=== PATIENT | male | born 1985 | race Two or more races ===

== ENCOUNTER 2018-01-20 15:06 | Emergency (ER) | payer MEDICAID ==
--- NOTE | 2018-01-20 16:17 | RAD ---
HISTORY: Headache COMPARISONS: None TECHNIQUE: Multiple contiguous axial CT scans were obtained of the head without intravenous contrast. FINDINGS: HEMORRHAGE/INFARCT: There is no hemorrhage or acute infarct. MASSES/SHIFT: There is no mass or shift. EXTRA-AXIAL SPACES: There are no extra-axial fluid collections. SULCI AND VENTRICLES: The sulci and ventricles are normal in size and position for the patient's stated age. CEREBRUM: There are no focal parenchymal abnormalities. BRAINSTEM: There are no focal parenchymal abnormalities. CEREBELLUM: There are no focal parenchymal abnormalities. VESSELS: The vessels are grossly normal. PARANASAL SINUSES: The paranasal sinuses are clear. ORBITS: The orbits are unremarkable. BONES AND SOFT TISSUE: No bone or soft tissue abnormalities are noted. OTHER: None IMPRESSION: NO ACUTE INTRACRANIAL PATHOLOGY.
[2018-01-20] MEDS ORDERED: Ketorolac INJ* 30 MG/ML 1 ML VIAL IV PUSH ONE (16:25)
[2018-01-20] MEDS ORDERED: NS 0.9% 1000 ML* 1,000 ML IV ONE (16:25)
[2018-01-20] MEDS ORDERED: Ondansetron INJ* 2 MG/ML VIAL IV ONE (16:25)
[2018-01-20] MEDS ORDERED: Acetaminophen TAB* 325 MG PO ONE (16:26)
[2018-01-20] MEDS ORDERED: Meclizine TAB* 12.5 MG PO ONE (16:42)
[2018-01-20 18:00] VITALS: BP 135/73
--- NOTE | 2018-01-20 18:15 | UC ---
Yamile Betancourt Emily, scribed for Tanner Rosario MD on 01/20/18 at 1618 . Headache HPI - HPI Summary HPI Summary: This patient is a 32 year old M presenting to urgent care with a chief complaint of frontal headache that began yesterday at 1400 and worsened today COUPLER. The patient reports the pain 2/10 upon waking and worsening to 10/10 in severity. Symptoms aggravated by nothing. Symptoms alleviated by nothing. Patient reports dizziness, blurred vision, vomiting, nausea (resolved), and chills. Patient denies SOB, fever, neck pain, back pain, numbness, nasal discharge, and sore throat. Pt reports current headache in the same location but with different pain intensity as his previous migraines. Medications reviewed. Allergies reviewed. - History Of Current Complaint Chief Complaint: UCHeadache Stated Complaint: HEADACHE,DIZZY Time Seen by Provider: 01/20/18 15:44 Hx Obtained From: Patient Onset/Duration: Sudden Onset, Lasting Days, Still Present Onset Of Symptoms: Gradual Initially Headache Was: Mild Currently Pain Is: Severe Pain Intensity: 10 Pain Scale Used: 0-10 Numeric Timing: Constant Location of Headache: Frontal Aggravating Factor(s): Nothing Allevating Factor(s): Nothing Associated Signs And Symptoms: Positive: Other (Noted In Comments) - Positive dizziness, blurred vision, vomiting, nausea (resolved), and chills. Negative SOB , fever, neck pain, back pain, numbness, nasal discharge, and sore throat. - Allergies/Home Medications Allergies/Adverse Reactions: Allergies Allergy/AdvReac Type Severity Reaction Status Date / Time No Known Allergies Allergy Verified 02/13/14 15:35 PMH/Surg Hx/FS Hx/Imm Hx Previously Healthy: No Endocrine History: Other Other Endocrine History: Negative diabetes Neurological History: Migraine - Surgical History Surgical History: Yes Surgery Procedure, Year, and Place: CHEST TUBE AN - Family History Known Family History: Positive: Diabetes - Social History Occupation: Employed Full-time Lives: With Family Alcohol Use: Rare Substance Use Type: None Smoking Status (MU): Never Smoked Tobacco Review of Systems Constitutional: Chills, Other - Negative fever Eyes: Blurred Vision ENT: Other - Negative nasal discharge and sore throat Gastrointestinal: Vomiting, Nausea Musculoskeletal: Other: - Negative neck pain and back pain Neurological: Headache, Other - Positive dizziness. Negative numbness All Other Systems Reviewed And Are Negative: Yes Physical Exam - Summary Physical Exam Summary: General: well-appearing, mild pain distress Skin: warm, color reflects adequate perfusion, dry Head: normal Eyes: EOMI, ZEYNEP ENT: normal Neck: supple, nontender Respiratory: CTA, breath sounds present Cardiovascular: RRR Abdomen: soft, nontender Bowel: present Musculoskeletal: normal, strength/ROM intact Neurological: sensory/motor intact, A&O x3 Psychological: affect/mood appropriate Triage Information Reviewed: Yes Vital Signs: Initial Vital Signs Temp 98.9 F 01/20/18 15:27 Pulse 112 01/20/18 15:27 Resp 18 01/20/18 15:27 BP 184/70 01/20/18 15:27 Pulse Ox 100 01/20/18 15:27 Vital Signs Reviewed: Yes Diagnostics - Radiology Brain CT Radiology Interpretation Completed By: Radiologist - Brain CT reveals, per radiologist, no acute intracranial pathology. Physician has reviewed this radiology report. Re-Evaluation - Re-Evaluation First Eval Re-Evaluation Time: 17:51 Change: Improved Comment: The pt reports the headache being 3/10 in severity Headache Course/Dx - Course Course Of Treatment: IMPROVED IN CLINIC AFTER 1L NS IVF, ZOFRAN, TORADOL AND ACETAMINOPHEN. PATIENT FEELS COMFORTABLE GOING HOME. F/U PMD; RECHECKED SOONER IF WORSE. - Differential Dx/Diagnosis Provider Diagnoses: HEADACHE. DIZZINESS Discharge - Sign-Out/Discharge Documenting (check all that apply): Discharge/Admit/Transfer - Discharge Plan Condition: Stable Disposition: HOME Patient Education Materials: Acute Headache (ED), Dizziness (ED) Referrals: Andrew Lopez MD [Primary Care Provider] - Additional Instructions: FOLLOW UP WITH YOUR DOCTOR IF NOT COMPLETELY IMPROVED. TAKE IBUPROFEN 600MG OR ACETAMINOPHEN 1000MG EVERY 6 HOURS NEEDED FOR PAIN. GET RECHECKED FOR ANY WORSENING OF YOUR CONDITION OR QUESTIONS OR CONCERNS. - Billing Disposition and Condition Condition: STABLE Disposition: HOME The documentation as recorded by the Yamile grimes Emily accurately reflects the service I personally performed and the decisions made by me, Tanner Rosario MD.
== END 2018-01-20 18:35 | disposition home or self-care (01) ==
LOC: UCEAST 15:06
DX: G43.909 Migraine, unspecified, not intractable, without status migrainosus (principal); R42 Dizziness and giddiness; Z83.3 Family history of diabetes mellitus
CPT/HCPCS: 70450; 96360; 96374; 99212; A9270-GY; G0463; J1885; J2405

== ENCOUNTER 2018-01-29 18:22 | Emergency (ER) | payer MEDICAID, OTHER ==
--- NOTE | 2018-01-29 19:16 | RAD ---
Indication: Chest pain. Single frontal view of the chest performed at 1900 hours was reviewed. Comparison is made with previous exam dated June 04, 2015. No mediastinal shift is noted. Heart is of normal size and configuration. Lung gomez appear clear. IMPRESSION: NO ACTIVE CARDIOPULMONARY DISEASE IS NOTED.
[2018-01-29 19:24] LABS: ABS Basophils 0 10^3/ul (0-0.2); ABS Eosinophils 0.1 10^3/ul (0-0.6); ABS Lymphocytes 3.2 10^3/ul (1.0-4.8); ABS Monocytes 0.9 10^3/ul (0-0.8); ABS Nucleated RBC 0 10^3/ul; Eosinophil % 1.6 % (0-6); Hematocrit 44 % (42-52); Hemoglobin 15.2 g/dl (14.0-18.0); Lymphocyte % 34.4 % (25-47); Mean Corpuscular HGB Conc 34 g/dl (31-36); Mean Corpuscular Hemoglobin 28 pg (27-31); Mean Corpuscular Volume 83 fL (80-94); Mean Platelet Volume 8.2 um3 (7.4-10.4); Nucleated Red Blood Cells % 0.1; Platelet Count 396 10^3/ul (150-450); Red Blood Count 5.34 10^6/ul (4.0-5.4); Red Cell Distribution Width 13 % (10.5-15); White Blood Count 9.3 10^3/ul (3.5-10.8)
[2018-01-29 19:57] LABS: EGFR Non-African American 110.3 (>60)
--- NOTE | 2018-01-29 21:32 | ED ---
Augustin Betancourt Tiffany, scribed for Matt Corbett MD on 01/29/18 at 1936 . HPI Chest Pain - HPI Summary HPI Summary: 32 year old M [facility] to [facility] complains of chest pain that began at 17:20 while patient was sitting down. Describes pain as sharp. Symptoms aggravated by nothing. Symptoms alleviated by nothing. Patient denies nausea, vomiting, SOB, dizziness. Pain lasted for 1 hour. Patient was given Aspirin en route with relief, chest pain is resolved upon evaluation. - History of Current Complaint Time Seen by Provider: 01/29/18 18:53 Hx Obtained From: Patient Onset/Duration: Started Hours Ago - 17:20 today, Resolved Character: Other: - sharp Aggravating Factor(s): Nothing Alleviating Factor(s): Rest Associated Signs and Symptoms: Positive: Negative - nausea. Negative: Dizziness , Shortness of Breath, Vomiting - Allergy/Home Medications Allergies/Adverse Reactions: Allergies Allergy/AdvReac Type Severity Reaction Status Date / Time No Known Allergies Allergy Verified 02/13/14 15:35 Home Medications: Home Medications Albuterol HFA INHALER* [Ventolin HFA Inhaler*] 2 puff INH QID 01/29/18 [History Confirmed 01/29/18] Budesonide/Formote 160/4.5(NF) [Symbicort 160/4.5 (NF)] 2 puff INH BID 01/29/18 [History Confirmed 01/29/18] PMH/Surg Hx/FS Hx/Imm Hx Previously Healthy: No Cardiovascular History: Denies: Hx Pacemaker/ICD Respiratory History: Reports: Hx Asthma Sensory History: Reports: Hx Contacts or Glasses Denies: Hx Hearing Aid Opthamlomology History: Reports: Hx Contacts or Glasses Psychiatric History: Denies: Hx Panic Disorder - Surgical History Surgery Procedure, Year, and Place: CHEST TUBE AN . VASECTOMY - Immunization History Date of Tetanus Vaccine: within 10 years Date of Influenza Vaccine: 2010 Infectious Disease History: Denies: Traveled Outside the [place] in Last 30 Days - Family History Known Family History: Positive: Diabetes, Other - ASTHMA - Social History Alcohol Use: Rare Hx Substance Use: No Substance Use Type: Reports: None Hx Tobacco Use: No Smoking Status (MU): Never Smoked Tobacco Review of Systems Positive: Chest Pain - SINCE RESOLVED Negative: Shortness Of Breath Negative: Vomiting, Nausea Neurological: Negative - Dizziness All Other Systems Reviewed And Are Negative: Yes Physical Exam - Summary Physical Exam Summary: VITAL SIGNS: Reviewed. GENERAL: Patient is a well-developed and nourished male who is lying comfortable in the stretcher. Patient is not in any acute respiratory distress. HEAD AND FACE: No signs of trauma. No ecchymosis, hematomas or skull depressions. No sinus tenderness. EYES: PERRLA, EOMI x 2, No injected conjunctiva, no nystagmus. EARS: Hearing grossly intact. Ear canals and tympanic membranes are within normal limits. MOUTH: Oropharynx within normal limits. NECK: Supple, trachea is midline, no adenopathy, no JVD, no carotid bruit, no c- spine tenderness, neck with full ROM. CHEST: Symmetric, no tenderness at palpation LUNGS: Clear to auscultation bilaterally. No wheezing or crackles. CVS: Regular rate and rhythm, S1 and S2 present, no murmurs or gallops appreciated. ABDOMEN: Soft, non-tender. No signs of distention. No rebound no guarding, and no masses palpated. Bowel sounds are normal. EXTREMITIES: FROM in all major joints, no edema, no cyanosis or clubbing. NEURO: Alert and oriented x 3. No acute neurological deficits. Speech is normal and follows commands. SKIN: Dry and warm Triage Information Reviewed: Yes Vital Signs On Initial Exam: Initial Vitals Pulse Resp Pulse Ox 108 22 99 01/29/18 18:33 06 18:33 01/29/18 18:33 Vital Signs Reviewed: Yes Diagnostics - Vital Signs Vital Signs Temp Pulse Resp BP Pulse Ox 01/29/18 21:00 115 17 96 01/29/18 20:55 94 24 142/73 98 01/29/18 20:05 103 135/103 100 01/29/18 20:00 95 99 01/29/18 19:34 102 149/98 100 01/29/18 19:11 98.0 F 96 15 148/78 100 01/29/18 19:00 90 18 98 01/29/18 18:34 96 16 148/78 99 01/29/18 18:33 108 22 99 - Laboratory Lab Results: Lab Results 01/29/18 01/29/18 01/29/18 Range/Units 19:13 19:13 19:14 WBC 9.3 (3.5-10.8) 10^3/ul RBC 5.34 (4.0-5.4) 10^6/ul Hgb 15.2 (14.0-18.0) g/dl Hct 44 (42-52) % MCV 83 (80-94) fL MCH 28 (27-31) pg MCHC 34 (31-36) g/dl RDW 13 (10.5-15) % Plt Count 396 (150-450) 10^3/ul MPV 8.2 (7.4-10.4) um3 Neut % (Auto) 54.1 (38-83) % Lymph % (Auto) 34.4 (25-47) % [place] % (Auto) 9.4 H (0-7) % Eos % (Auto) 1.6 (0-6) % Baso % (Auto) 0.5 (0-2) % Absolute Neuts (auto) 5.0 (1.5-7.7) 10^3/ul Absolute Lymphs (auto) 3.2 (1.0-4.8) 10^3/ul Absolute Monos (auto) 0.9 H (0-0.8) 10^3/ul Absolute Eos (auto) 0.1 (0-0.6) 10^3/ul Absolute Basos (auto) 0 (0-0.2) 10^3/ul Absolute Nucleated RBC 0 10^3/ul Nucleated RBC % 0.1 APTT 35.1 (26.0-36.3) seconds D-Dimer, Quantitative < 200 (Less Than 230) ng/mL Sodium 139 (139-145) mmol/L Potassium 3.7 (3.5-5.0) mmol/L Chloride 104 (101-111) mmol/L Carbon Dioxide 26 (22-32) mmol/L Anion Gap 9 (2-11) mmol/L BUN 16 (6-24) mg/dL Creatinine 0.82 (0.67-1.17) mg/dL Est GFR ( Amer) 141.9 (>60) Est GFR (Non-Af Amer) 110.3 (>60) BUN/Creatinine Ratio 19.5 (8-20) Glucose 90 (70-100) mg/dL Lactic Acid (0.5-2.0) mmol/L Calcium 10.3 (8.6-10.3) mg/dL Magnesium 1.7 L (1.9-2.7) mg/dL Total Bilirubin 0.40 (0.2-1.0) mg/dL AST 43 H (13-39) U/L ALT 107 H (7-52) U/L Alkaline Phosphatase 167 H (34-104) U/L Total Creatine Kinase 247 H (10-223) U/L CK-MB (CK-2) 1.8 (0.6-6.3) ng/mL Troponin I 0.00 (<0.04) ng/mL B-Natriuretic Peptide ( - 100) pg/mL Total Protein 8.1 (6.4-8.9) g/dL Albumin 4.5 (3.2-5.2) g/dL Globulin 3.6 (2-4) g/dL Albumin/Globulin Ratio 1.3 (1-3) TSH 0.00 L (0.34-5.60) mcIU/mL 01/29/18 01/29/18 Range/Units 19:14 19:14 WBC (3.5-10.8) 10^3/ul RBC (4.0-5.4) 10^6/ul Hgb (14.0-18.0) g/dl Hct (42-52) % MCV (80-94) fL MCH (27-31) pg MCHC (31-36) g/dl RDW (10.5-15) % Plt Count (150-450) 10^3/ul MPV (7.4-10.4) um3 Neut % (Auto) (38-83) % Lymph % (Auto) (25-47) % [place] % (Auto) (0-7) % Eos % (Auto) (0-6) % Baso % (Auto) (0-2) % Absolute Neuts (auto) (1.5-7.7) 10^3/ul Absolute Lymphs (auto) (1.0-4.8) 10^3/ul Absolute Monos (auto) (0-0.8) 10^3/ul Absolute Eos (auto) (0-0.6) 10^3/ul Absolute Basos (auto) (0-0.2) 10^3/ul Absolute Nucleated RBC 10^3/ul Nucleated RBC % APTT (26.0-36.3) seconds D-Dimer, Quantitative (Less Than 230) ng/mL Sodium (139-145) mmol/L Potassium (3.5-5.0) mmol/L Chloride (101-111) mmol/L Carbon Dioxide (22-32) mmol/L Anion Gap (2-11) mmol/L BUN (6-24) mg/dL Creatinine (0.67-1.17) mg/dL Est GFR ( Amer) (>60) Est GFR (Non-Af Amer) (>60) BUN/Creatinine Ratio (8-20) Glucose (70-100) mg/dL Lactic Acid 0.8 (0.5-2.0) mmol/L Calcium (8.6-10.3) mg/dL Magnesium (1.9-2.7) mg/dL Total Bilirubin (0.2-1.0) mg/dL AST (13-39) U/L ALT (7-52) U/L Alkaline Phosphatase (34-104) U/L Total Creatine Kinase (10-223) U/L CK-MB (CK-2) (0.6-6.3) ng/mL Troponin I (<0.04) ng/mL B-Natriuretic Peptide 61 ( - 100) pg/mL Total Protein (6.4-8.9) g/dL Albumin (3.2-5.2) g/dL Globulin (2-4) g/dL Albumin/Globulin Ratio (1-3) TSH (0.34-5.60) mcIU/mL Result Diagrams: 01/29/18 19:14 01/29/18 19:13 Lab Statement: Any lab studies that have been ordered have been reviewed, and results considered in the medical decision making process. - Radiology CXR Radiology Interpretation Completed By: Radiologist - NO ACTIVE CARDIOPULMONARY DISEASE IS NOTED. ED physician has reviewed this report. - EKG 18:31 Cardiac Rate: Tachycardia - 102 BPM EKG Rhythm: Sinus Tachycardia EKG Interpretation: No ST elevations. Normal axis. Chest Pain Course/Dx - Course Assessment/Plan: This patient is a 32-year-old male who presents to the emergency department with a chief complaint of having sharp chest pain. He reports that it was only one time lasting for a couple minutes and the result. Since that the patient has been asymptomatic. Patient has past medical history significant for asthma. Test results without any significant abnormality except for increase in LFTs. At this point I reexamined the abdomen of the patient and he has no abdominal pain, he denies any right upper quadrant pain. He reports that he drinks alcohol beverages that often. He denies taking Tylenol. He denies any recent traveling has no other complaints. The patient was given medication for the hypomagnesemia. Since the patient is asymptomatic the patient was discharged home with follow-up with primary care physician in the next 3 days to recheck the LFTs. CXR impression: No active cardiopulmonary disease. The patient is feeling better and he wants to do the RUQ ultrasound as an outpatient. He also will follow with a hepatitis panel with the primary care physician. I discussed all the findings and test results with the patient. Patient was instructed to return to the emergency room immediately if any of the symptoms return or worsens. Plan of care was discussed with the patient and understands and agrees. All questions were answered at patient satisfaction. There were no further complaints or concerns. Lung exam before discharge: CTA B/L. Good air exchange. No wheezing or crackles heard. CVS: S1 and S2 present. No murmurs appreciated. Patient is alert and oriented x 3. Patient is hemodynamically stable. Patient will be discharged home with follow up PCP in the next 2-3 days. Again he understands the importance of follow-up with a primary care physician. LFTs, hepatitis panel and right upper quadrant ultrasound. - Chest Pain Differential Diagnosis/HQI/PQRI: Acute NC, ACS, Angina, Aortic Aneurysm, CHF, Chest Wall, GI Disease, Lower Respiratory Infection - Diagnoses Provider Diagnoses: Atypical chest pain, LFTs abnormal Discharge - Sign-Out/Discharge Documenting (check all that apply): Discharge/Admit/Transfer - Discharge Plan Condition: Stable Disposition: HOME Patient Education Materials: Chest Pain (ED) Referrals: Andrew Lopez MD [Primary Care Provider] - 3 Days Additional Instructions: FOLLOW UP WITH YOUR PRIMARY CARE PROVIDER IN 3 DAYS. RETURN TO THE EMERGENCY DEPARTMENT FOR ANY WORSENING OR NEW SYMPTOMS. - Billing Disposition and Condition Condition: STABLE Disposition: Home The documentation as recorded by the Augustin grimes Tiffany accurately reflects the service I personally performed and the decisions made by , Matt Corbett MD.
[2018-01-29 21:38] VITALS: BP 129/88
== END 2018-01-29 21:53 | disposition home or self-care (01) ==
LOC: ED 18:22
DX: R07.89 Other chest pain (principal); R94.5 Abnormal results of liver function studies
CPT/HCPCS: 36415; 71045; 80053; 80074; 82550; 82553; 83605; 83735; 83880; 84443; 84484; 85025; 85379; 85730; 93005; 99285

== ENCOUNTER 2018-04-19 12:08 | Emergency (ER) | payer OTHER ==
[2018-04-19 12:20] VITALS: BP 146/77
--- NOTE | 2018-04-19 12:54 | UC ---
Head Injury HPI - HPI Summary HPI Summary: Patient is a 33 y/o M w/ c/o head injury and COYNE onsetting yesterday. He reports two different instances of hitting his head. The first incident occurred when he was attempting to remove his daughter from the playplace at the [employer]. [facility] metal rack. Patient states that he remembers both incidents. An hour ago at work, he states he went to go sit down and felt his head throbbing. He claims he was "seeing double" that has since resolved and is presently "feeling weird". He also notes nausea. On nurse's note, pain is rated 7/10. Patient states blinking aggravates pain and notes some weakness/numbness of UE. Patient reports receiving tetanus shot last year. - History Of Current Complaint Stated Complaint: HEAD INJURY Time Seen by Provider: 04/19/18 12:17 Hx Obtained From: Patient Onset/Duration: Lasting Hours - head throbbing onset an hour ago, Lasting Days - head injuries onset yesterday, Still Present Severity Initially: Severe - 7/10 Pain Intensity: 7 Pain Scale Used: 0-10 Numeric - 7/10 Character: Throbbing Aggravating Factor(s): Other - blinking Associated Signs And Symptoms: Positive: Nausea, Other - POSITIVE: UE weakness/ tingling, "feeling weird", experiencing double vision - Allergies/Home Medications Allergies/Adverse Reactions: Allergies Allergy/AdvReac Type Severity Reaction Status Date / Time No Known Allergies Allergy Verified 04/19/18 12:20 Home Medications: Home Medications Acetaminophen TAB* [Tylenol TAB*] 975 mg PO Q4H PRN 04/19/18 [History Confirmed 04/19/18] PMH/Surg Hx/FS Hx/Imm Hx - Additional Past Medical History Additional PMH: NEGATIVE: legally blind Endocrine History: Other Other Endocrine History: nontoxic goiter - Surgical History Surgical History: Yes Surgery Procedure, Year, and Place: CHEST TUBE AN . VASECTOMY - Family History Known Family History: Positive: Diabetes, Other - ASTHMA - Social History Alcohol Use: Occasionally Substance Use Type: None Smoking Status (MU): Never Smoked Tobacco - Immunization History Most Recent Tetanus Shot: 2017 Review of Systems Constitutional: Other - POSITIVE: "feeling weird" Eyes: Other - POSITIVE: double vision Gastrointestinal: Nausea Musculoskeletal: Other: - POSITIVE: head injury Neurological: Headache - throbbing, Other - POSITIVE: UE numbness/weakness All Other Systems Reviewed And Are Negative: Yes Physical Exam - Summary Physical Exam Summary: Appearance: Well-appearing, Well-nourished Skin: Warm; abrasion to left upper forehead, no bleeding or tenderness. Eyes: Normal ENT: Normal Neck: Supple, nontender Respiratory: Clear to auscultation Cardiovascular: Normal S1, S2. No murmurs. Normal distal pulses in tibial and radial bilaterally. Abdomen: Soft, nontender Musculoskeletal: Normal, Strength/ROM Intact Neurological: Normal, A&Ox3 Psychiatric: Normal General: No acute distress Triage Information Reviewed: Yes Vital Signs: Initial Vital Signs Temp 98.1 F 04/19/18 12:14 Pulse 103 04/19/18 12:14 Resp 16 04/19/18 12:14 BP 146/77 04/19/18 12:14 Pulse Ox 98 04/19/18 12:14 Vital Signs Reviewed: Yes Re-Evaluation - Re-Evaluation First Eval Re-Evaluation Time: 13:10 Comment: Discussed results of CT Head. Patient states he was feeling slightly better at the time. He will be discharged to home. He is agreeable with this plan. Head Injury Course/Dx - Course Course Of Treatment: Patient feels better here in the emergency department, denies any double vision. I instructed the patient to provide himself with rest at least 2 days without work and to gradually increased level of activity thereafter, given the patient suffered symptoms consistent with a concussion. I also instructed the patient to follow up with a primary care provider within one week and to return to the emergency department for any worsening or concerning symptoms. Agrees to and understands discharge instructions. Normal neurological status, normal gait. - Differential Dx/Diagnosis Provider Diagnoses: concussion. closed head injury Discharge - Sign-Out/Discharge Documenting (check all that apply): Patient Departure - discharge All imaging exams completed and their final reports reviewed: Yes - Discharge Plan Condition: Stable Disposition: HOME Patient Education Materials: Concussion (ED) Forms: *Work Release Referrals: Andrew Lopez MD [Primary Care Provider] - Additional Instructions: PLEASE ALLOW YOURSELF TO REST FOR 1-2 DAYS. PLEASE GRADUALLY RESUME LEVELS OF ACTIVITY THEREAFTER. PLEASE MAKE AN APPOINTMENT TO SEE YOUR DOCTOR FOR REEVALUATION WITHIN 1-2 WEEKS. PLEASE RETURN IMMEDIATELY FOR ANY WORSENING OR CONCERNING SYMPTOMS. - Billing Disposition and Condition Condition: STABLE Disposition: Home - Attestation Statements Document Initiated by Veronica: Yes Documenting Scribe: Lam Rodriguez Provider For Whom Veronica is Documenting (Include Credential): Ponce Gar MD Scribe Attestation: Lam Betancourt, scribed for Ponce Gar MD on 04/19/18 at 1648. Scribe Documentation Reviewed: Yes Provider Attestation: The documentation as recorded by the Lam grimes accurately reflects the service I personally performed and the decisions made by me, Ponce Gar MD
--- NOTE | 2018-04-19 13:19 | RAD ---
INDICATION: Intracranial injury COMPARISON: January 20, 2018 TECHNIQUE: Noncontrast axial source images were acquired from the skull base to the vertex. FINDINGS: Ventricles/sulci: The ventricles and cisterns are normal in size and configuration for age. Brain parenchyma: There is no focal parenchymal finding, evidence of intracranial mass, or intracranial mass effect. Intracranial hemorrhage:None. Extra-axial spaces: There are no abnormal extra axial fluid collections or evidence of extra-axial mass. Calvarium: There is no calvarial fracture or other calvarial abnormality. Scalp: There is no evidence of scalp or extracalvarial soft tissue abnormality. Paranasal sinuses/mastoid: The paranasal sinuses and mastoid air cells are clear. Other: There is calcification of the anterior falx. IMPRESSION: No acute intracranial findings
== END 2018-04-19 13:30 | disposition home or self-care (01) ==
LOC: UCEAST 12:08
DX: S06.0X9A Concussion with loss of consciousness of unspecified duration, initial encounter (principal); S09.90XA Unspecified injury of head, initial encounter; W22.8XXA Striking against or struck by other objects, initial encounter; Y93.89 Activity, other specified; Y92.9 Unspecified place or not applicable
CPT/HCPCS: 70450; 99211; G0463

== ENCOUNTER 2018-04-21 11:49 | Emergency (ER) | payer OTHER ==
[2018-04-21 11:56] VITALS: BP 160/92
--- NOTE | 2018-04-21 12:13 | UC ---
Head Injury HPI - HPI Summary HPI Summary: A 33 y/o M presents to [facility] for recheck s/p head injury two days ago. Pt hit his head on a playground structure. Approx 15 minutes later, he got up too fast while shopping, and had a syncopal episode and hit his head again. Pt was seen at [facility] on 04/19/18 and given a work note for two days and then light-duty work upon return. Pt is asking for a work note that states he is OK to return to work without restriction. Pt has no complaints at this time and states he is feeling OK. - History Of Current Complaint Chief Complaint: UCHeadInjury Stated Complaint: HEAD INJURY RECHECK Time Seen by Provider: 04/21/18 12:07 Hx Obtained From: Patient Onset/Duration: Resolved Severity Currently: None Pain Intensity: 0 Pain Scale Used: 0-10 Numeric Associated Signs And Symptoms: Positive: Negative - Allergies/Home Medications Allergies/Adverse Reactions: Allergies Allergy/AdvReac Type Severity Reaction Status Date / Time No Known Allergies Allergy Verified 04/21/18 11:56 PMH/Surg Hx/FS Hx/Imm Hx Previously Healthy: Yes Respiratory History: Asthma Other Psychological History: neg: panic disorder - Surgical History Surgical History: Yes Surgery Procedure, Year, and Place: CHEST TUBE AN . VASECTOMY - Family History Known Family History: Positive: Diabetes, Other - ASTHMA - Social History Occupation: Employed Full-time Lives: With Family Alcohol Use: Occasionally Substance Use Type: None Smoking Status (MU): Never Smoked Tobacco - Immunization History Most Recent Tetanus Shot: 2017 Review of Systems Constitutional: Other - neg: fever Skin: Other - healing abrasion to forehead All Other Systems Reviewed And Are Negative: Yes Physical Exam - Summary Physical Exam Summary: General: well-appearing, no pain distress Skin: warm, color reflects adequate perfusion, dry Head: normal; healing non-bleeding abrasion to L forehead Eyes: EOMI, ZEYNEP ENT: normal Neck: supple, nontender Respiratory: CTA, breath sounds present Cardiovascular: RRR Abdomen: soft, nontender Bowel: present Musculoskeletal: normal, strength/ROM intact Neurological: sensory/motor intact, A&O x3 Psychological: affect/mood appropriate Triage Information Reviewed: Yes Vital Signs: Initial Vital Signs Temp 97.9 F 04/21/18 11:53 Pulse 122 08/29/18 11:53 Resp 18 04/21/18 11:53 BP 160/92 04/21/18 11:53 Pulse Ox 100 04/21/18 11:53 Vital Signs Reviewed: Yes Head Injury Course/Dx - Course Course Of Treatment: BP noted and advised to follow up with PCP. Medications reviewed. Allergies noted. - Differential Dx/Diagnosis Provider Diagnoses: 1. HEAD INJURY. 2. Elevated BP without dx of HTN Discharge - Sign-Out/Discharge Documenting (check all that apply): Patient Departure - DC All imaging exams completed and their final reports reviewed: No Studies - Discharge Plan Condition: Stable Disposition: HOME Patient Education Materials: Head Injury (ED) Forms: *Work Release Referrals: Andrew Lopez MD [Primary Care Provider] - Additional Instructions: FOLLOW UP WITH YOUR DOCTOR IF NOT COMPLETELY IMPROVED. GET RECHECKED FOR ANY WORSENING OF YOUR CONDITION OR QUESTIONS OR CONCERNS. Your blood pressure was elevated during todays visit; please follow up with your primary care provider within a week for further evaluation. - Billing Disposition and Condition Condition: STABLE Disposition: Home - Attestation Statements Document Initiated by Rosalesibangela: Yes Documenting Scribe: Jim Daley Provider For Whom Veronica is Documenting (Include Credential): Tanner Rosario MD Scribe Attestation: IJim scribed for Tanner Rosario MD on 04/21/18 at 1323. Scribe Documentation Reviewed: Yes Provider Attestation: The documentation as recorded by the Jim grimes accurately reflects the service I personally performed and the decisions made by me, Tanner Rosario MD
== END 2018-04-21 12:20 | disposition home or self-care (01) ==
LOC: UCEAST 11:49
DX: S09.90XA Unspecified injury of head, initial encounter (principal); R03.0 Elevated blood-pressure reading, without diagnosis of hypertension; J45.909 Unspecified asthma, uncomplicated; W21.9XXA Striking against or struck by unspecified sports equipment, initial encounter; Y92.9 Unspecified place or not applicable
CPT/HCPCS: 99211; G0463

== ENCOUNTER 2018-08-24 15:47 | Emergency (ER) | payer OTHER ==
[2018-08-24 16:12] VITALS: BP 156/84
[2018-08-24] MEDS ORDERED: Ibuprofen TAB* 600 MG PO ONE (16:47)
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
== END 2018-08-24 17:50 | disposition home or self-care (01) ==
LOC: UCEAST 15:47
DX: S13.4XXA Sprain of ligaments of cervical spine, initial encounter (principal); I10 Essential (primary) hypertension; X58.XXXA Exposure to other specified factors, initial encounter; Y92.9 Unspecified place or not applicable; Y99.0 Civilian activity done for income or pay
CPT/HCPCS: 72050; 99211; A9270-GY; G0463

== ENCOUNTER 2019-06-13 15:41 | Emergency (ER) | payer OTHER ==
[2019-06-13 16:47] VITALS: BP 151/80
--- NOTE | 2019-06-13 17:34 | UC ---
Headache HPI - HPI Summary HPI Summary: 34 yo male presents with headache. He tells me that he has a history of chronic headaches dating back to when he was in high school. He used to be on routine medication, but has not been for some time. Over the last month he has had intermittent headaches that are usually frontal in nature that last anywhere from a few hours to 2-3 days. He has taken ibuprofen OTC for his headache with no relief. Currently has had a headache since this morning. He denies vision changes, dizziness, numbness, tingling, recent illness, fever, chills, abdominal pain, n/v, sinus symptoms. He is eating and drinking well - currently eating [employer] during this interview. - History Of Current Complaint Chief Complaint: Reinaldo Stated Complaint: MIGRAINE OFF AND ON FOR A MONTH Time Seen by Provider: 06/13/19 17:34 Hx Obtained From: Patient Onset/Duration: Gradual Onset Initially Headache Was: Severe Currently Pain Is: Severe Pain Intensity: 10 Pain Scale Used: 0-10 Numeric - Allergies/Home Medications Allergies/Adverse Reactions: Allergies Allergy/AdvReac Type Severity Reaction Status Date / Time pet dander Allergy Difficulty Uncoded 06/13/19 16:48 Breathing Home Medications: Home Medications Acetaminophen [Pain Relief] 1,000 mg PO ONCE PRN 06/13/19 [History Confirmed ] PMH/Surg Hx/FS Hx/Imm Hx Respiratory History: Asthma - Surgical History Surgical History: Yes Surgery Procedure, Year, and Place: CHEST TUBE AN INFANT. VASECTOMY - Family History Known Family History: Positive: Diabetes, Other - ASTHMA - Social History Lives: With Family Alcohol Use: Occasionally Substance Use Type: None Smoking Status (MU): Never Smoked Tobacco - Immunization History Most Recent Tetanus Shot: 2017 Review of Systems All Other Systems Reviewed And Are Negative: No Constitutional: Positive: Negative Skin: Positive: Negative Eyes: Positive: Negative ENT: Positive: Negative Respiratory: Positive: Negative Cardiovascular: Positive: Negative Gastrointestinal: Positive: Negative Genitourinary: Positive: Negative Motor: Positive: Negative Neurovascular: Positive: Negative Musculoskeletal: Positive: Negative Neurological: Positive: Headache Psychological: Positive: Negative Physical Exam - Summary Physical Exam Summary: GENERAL: NAD. WDWN. No pain distress. SKIN: No rashes, sores, ulcers, masses, lesions. HEENT: Head: AT/NC. No raccoon eyes or battles sign. Eyes: PERRLA. EOM intact. Conjunctiva clear without inflammation or discharge. Ears: Hearing grossly normal. TMs intact, no bulging, erythema, or edema. No hemotympanum Nose: Nasal mucosa pink and moist. NTTP maxillary and frontal sinus. Throat: Posterior oropharynx without exudates, erythema, or tonsillar enlargement. Uvula midline. NECK: Supple. Nontender. FROM CHEST: CTAB. No r/r/w. No accessory muscle use. Breathing comfortably and in no distress. CV: RRR. Pulses intact. Brisk cap refill. MSK: FROM in B/L UEs and LEs with symmetric strength. NEURO: A&Ox3. 3 word recall, remote, recent memory, ability to follow 2-step directions, and attention intact. CN: II: Peripheral gomez intact. Vision normal. III, IV, : EOMI. No nystagmus. PERRLA. V: Sensations intact and symmetric. Opens mouth and clenches teeth. VII: No facial asymmetry. Forehead wrinkles. Grins, shuts eyes, frowns, puffs cheeks. VIII: Hearing intact to finger rub. IX, X: Swallows and coughs. Uvula midline. XI: Shrugs shoulders. Turns head against resistance. XII: No tongue deviation [id number]-[id number] are intact. Gait with normal base. Romberg: maintains balance, no pronator drift. Normal speech. No facial drooping. PSYCH: Age appropriate behavior. Triage Information Reviewed: Yes Vital Signs: Initial Vital Signs Temp 99.5 F 06/13/19 16:42 Pulse 105 06/13/19 16:42 Resp 18 06/13/19 16:42 BP 151/80 06/13/19 16:42 Pulse Ox 100 06/13/19 16:42 Vital Signs Reviewed: Yes Diagnostics - Radiology Brain Ct Radiology Interpretation Completed By: Radiologist Summary of Radiographic Findings: IMPRESSION: No acute intracranial pathology. Headache Course/Dx - Course Course Of Treatment: CT as above. I offered pt IV NS and headache medication IV, but he declined these and would prefer a prescription po medication. Will try with excedrin migraine and refer him to neurology for headache management - Differential Dx/Diagnosis Provider Diagnosis: Headache Discharge ED - Sign-Out/Discharge Documenting (check all that apply): Patient Departure All imaging exams completed and their final reports reviewed: Yes - Discharge Plan Condition: Stable Disposition: HOME Prescriptions: Aspirin/Acetaminophen/Caffeine [Excedrin Migraine Geltab] 1 each PO DAILY PRN # 14 tablet PRN Reason: Headache Patient Education Materials: Tension Headache (ED) Referrals: Aby Leonardo MD [Primary Care Provider] - Neftali Castillo MD [Medical Doctor] - As Soon As Possible Additional Instructions: If you develop a fever, shortness of breath, chest pain, new or worsening symptoms - please call your PCP or go to the ED immediately. Your blood pressure was high at todays visit. Please see your primary provider within 4 weeks for recheck and re-evaluation. I recommend that you follow up with neurology at the number below to schedule an appointment for further evaluation of your headaches - Billing Disposition and Condition Condition: STABLE Disposition: Home - Attestation Statements Provider Attestation: Per institutional requirements, I have reviewed the chart, however, I was not consulted specifically or made aware of this patient by the midlevel provider. I did not personally evaluate, interact with , or disposition this patient.
== END 2019-06-13 19:00 | disposition home or self-care (01) ==
LOC: UCEAST 15:41
DX: R51 Headache (principal); J45.909 Unspecified asthma, uncomplicated; Z91.09 Other allergy status, other than to drugs and biological substances
CPT/HCPCS: 70450; 99212; G0463

== ENCOUNTER 2019-08-15 09:38 | Emergency (ER) | payer OTHER ==
--- OUTSIDE RECORDS SUMMARY | 2019-08-15 09:42 | XMS REPORT | Continuity of Care Document ---
:1985 External Reference #:[id number] Author Name Clifford Irby NP (transmitted by agent of provider Carolyn Palma) Address [address], [place] [address] Care Team Providers Name Role Phone El Hess MD - Endocrinology, Care Team Information Older Adult Social Work Specialist Diabetes & Metabolism Aby Leonardo MD - Internal Medicine Care Team Information Older Adult Social Work Specialist [phone] Problems Active Problems Provider Date Dyspnea Jc Harrison M.D. Onset: 10/26/2013 Chest pain Jc Harrison M.D. Onset: 10/26/2013 Asthma without status asthmaticus Andrew Lopez M.D. Onset: 08/30/2014 Headache Andrew Lopez M.D. Onset: 06/01/2015 High enzyme level in serum Andrew Lopez M.D. Onset: 02/03/2018 Thyroid function tests abnormal Andrew Lopez M.D. 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 Onset: 02/03/2018 Toxic diffuse goiter with no crisis Aby Leonardo MD Onset: 04/12/2019 Social History Type Date Description Comments Sex Unknown Tobacco Use Start: Unknown Never Smoked Cigarettes ETOH Use Occasionally consumes 4 times per month alcohol Tobacco Use Start: Unknown Patient has never smoked Recreational Drug Use Denies Drug Use Smoking Status Reviewed: 08/04/19 Patient has never smoked Exercise Type/Frequency Exercises regularly martial arts, swimming, walking. Allergies, Adverse Reactions, Alerts Description No Known Drug Allergies Medications Active Medications SIG Qnty Indications Ordering Provider Date Ventolin HFA Inhale Two Puffs 18units Aby Leonardo MD 06/28/2018 By Mouth Four 108(90Base) mcg/Act Times A Day as Aerosol Needed Nebulizer/Adult Mask use as directed 1units J45.909 Aby Leonardo MD 2014 Kit J45.41 Symbicort 2 puff twice a day 18gm J45.909 Aby Leonardo MD 01/12/2015 160-4.5mcg/Act Aerosol Albuterol Sulfate 1 vial via 100units Aby Leonardo MD (2.5mg/3ML) nebulizer 3 times 0.083% Nebulizer daily as needed Medications Administered in Office Medication SIG Qnty Indications Ordering Provider Date PPD Injection Nurse Visit C 02/14/2015 Immunizations CPT Code Status Date Vaccine Lot # [id number] Given 07/02/2009 Influenza Virus Vaccine, Pandemic Formulation [id number] Given 07/02/2009 Administration Swine Flu Shot [id number] Refused 06/01/2015 Influenza Virus Vaccine, Quadrivalent, Split, Preservative Free Vital Signs Date Vital Result Comment 08/04/2019 11:21am Height 66 inches 5'6" Weight 136.25 lb reports losing weight Heart Rate 130 /min Apical 121 BP Systolic 147 mmHg BP Diastolic 83 mmHg BP Systolic Recheck 144 mmHg BP Diastolic Recheck 84 mmHg Body Temperature 97.9 F O2 % BldC Oximetry 96 % BMI (Body Mass Index) 22.0 kg/m2 04/12/2019 10:22am Height 66 inches 5'6" Weight 151.00 lb Heart Rate 100 /min BP Systolic Sitting 143 mmHg BP Diastolic Sitting 83 mmHg Body Temperature 97.0 F O2 % BldC Oximetry 97 % BMI (Body Mass Index) 24.4 kg/m2 Results Test Acquired Date Facility Test Result H/L Range Note Urinalysis Profile 08/03/2019 [facility] Urine Color Yellow [address] [place] [address] [phone] Urine Appearance Clear Urine Specific Jansen 1.021 Normal 1.010-1.030 Urine pH 6.0 Normal 5-9 Urine Urobilinogen Negative Negative Urine Ketones Negative Negative Urine Protein Negative Negative Urine Leukocytes Negative Negative Urine Blood 1+ Abnormal Negative * * Abnormal Negative 1 Urine Nitrite Negative Negative Urine Bilirubin Negative Negative Urine Glucose Negative Negative Urine White Blood Cell Absent Absent Urine Red Blood Cell Trace(0-2/hpf) Absent Urine Bacteria Absent Absent Urine Squamous Epithelial Cell Present Abnormal Absent GC/Chlamydia 08/03/2019 [facility] GCCHL Disclaimer (SEE NOTE) [address] [place] [address] [phone] Chlamydia trachomatis Laquita Negative Negative Neisseria gonorrhoeae (GC) Laquita Negative Negative Comp Metabolic 04/12/2019 [facility] Sodium 139 mmol/L Normal 135-[address] [place] [address] [phone] Potassium 4.6 mmol/L Normal 3.5-5.0 Chloride 104 mmol/L Normal 101-111 Co2 Carbon Dioxide 27 mmol/L Normal 22-32 Anion Gap 8 mmol/L Normal 2-11 Glucose 89 mg/dL Normal 70-100 Blood Urea Nitrogen 21 mg/dL Normal 6-24 Creatinine 0.86 mg/dL Normal 0.67-1.17 BUN/Creatinine Ratio 24.4 High 8-20 Calcium 10.6 mg/dL High 8.6-10.3 Total Protein 7.6 g/dL Normal 6.4-8.9 Albumin 4.6 g/dL Normal 3.2-5.2 Globulin 3.0 g/dL Normal 2-4 Albumin/Globulin Ratio 1.5 Normal 1-3 Total Bilirubin 0.70 mg/dL Normal 0.2-1.0 Alkaline Phosphatase 145 U/L High 34-104 Alt 62 U/L High 7-52 Ast 26 U/L Normal 13-39 Egfr Non- 103.1 >60 Egfr 124.7 >60 3 Laboratory test 04/12/2019 [facility] TSH (Thyroid 0.00 Low 0.34-5.[address] Stim Horm) mcIU/[place] [address] [phone] T3 Free 23.20 pg/mL High 2.5-3.9 Free T4 (Free Thyroxine) 4.15 ng/dL High 0.61-1.12 CBC Auto 04/12/2019 [facility] White Blood 8.2 10^3/uL Normal 3.5-10.[address] [place] [address] [phone] Red Blood Count 5.60 10^6/uL High 4.18-5.48 Hemoglobin 15.7 g/dL Normal 14.0-18.0 Hematocrit 47 % Normal 42-52 Mean Corpuscular Volume 83 fL Normal 80-94 Mean Corpuscular Hemoglobin 28 pg Normal 27-31 Mean Corpuscular HGB Conc 34 g/dL Normal 31-36 Red Cell Distribution Width 14 % Normal 10-15 Platelet Count 349 10^3/uL Normal 150-450 Mean Platelet Volume 8.7 fL Normal 7.4-10.4 Abs Neutrophils 4.3 10^3/uL Normal 1.5-7.7 Abs Lymphocytes 2.7 10^3/uL Normal 1.0-4.8 Abs Monocytes 1.0 10^3/uL High 0-0.8 Abs Eosinophils 0.2 10^3/uL Normal 0-0.6 Abs Basophils 0.0 10^3/uL Normal 0-0.2 Abs Nucleated RBC 0.0 10^3/uL Granulocyte % 52.0 % Lymphocyte % 33.0 % Monocyte % 11.7 % Eosinophil % 2.8 % Basophil % 0.5 % Nucleated Red Blood Cells % 0.0 Laboratory test 04/12/2019 [facility] Vitamin D 48.8 ng/mL Normal 20-[address] [place] [address] [phone] 1 *Ascorbic acid is present which may interfere with detection of blood. 2 As with all diagnostic procedures, the laboratory results obtained should be used in conjunction with other clinical information available to the physician, including confirmation by another method, as applicable. 3 Because ethnic data is not always readily available, this report includes an eGFR for both -Americans and non- Americans. The National Kidney Disease Education Program (NKDEP) does not endorse the use of the MDRD equation for patients that are not between the ages of 18 and 70, are , have extremes of body size, muscle mass, or nutritional status, or are non- or non-. According to the National Kidney Foundation, irrespective of diagnosis, the stage of the disease is based on the level of kidney function: Stage Description GFR(mL/min/1.73 m(2)) 1 Kidney damage with normal or decreased GFR 90 2 Kidney damage with mild decrease in GFR 60-89 3 Moderate decrease in GFR 30-59 4 Severe decrease in GFR 15-29 5 Kidney failure <15 (or dialysis) 4 Total 25-Hydroxyvitamin D2 and D3 (25-OH-VitD) <10 ng/mL (severe deficiency) 10-19 ng/mL (mild to moderate deficiency) 20-50 ng/mL (optimum levels) 51-80 ng/mL (increased risk of hypercalciuria) >80 ng/mL (toxicity possible) Procedures Description No Information Available Medical Devices Description No Information Available Encounters Type Date Location Provider Dx Diagnosis Office Visit 04/12/2019 [facility] Internal Aby Leonardo MD R25.1 Tremor, unspecified 10:40a Medicine - Ccmob Assessments Date Code Description Provider 08/04/2019 R36.1 Hematospermia Clifford Irby NP 08/04/2019 E05.00 Thyrotoxicosis with diffuse goiter without Clifford BETO Irby thyrotoxic crisis 08/04/2019 Z11.3 Encounter for screening for infections with a Clifford Irby NP predominantly sexual mode of transmission 08/04/2019 N50.819 Testicular pain, unspecified Clifford Surekha, BREAST PULLER 04/12/2019 R25.1 Tremor, unspecified Aby Leonardo MD Plan of Treatment Future Appointment(s):09/05/2019 2:00 pm - Yobani Rowland M.D. at [facility]08/04/2019 - Clifford Irby, NPR36.1 HematospermiaComments :We will notify you of the rest of your lab results.I have submitted the referral to the urologist for further evaluation.Referral:Keith Nichole MD, ShtjkhsJ70.00 Thyrotoxicosis with diffuse goiter without thyrotoxic crisisComments:I would recommend starting the medication prescribed by the mfg assoc to regulate your heart rate (Inderal).Check your heart rate at home like we discussed and if it is running greater than 120 regularly let us know.It is important to make a follow up with endocrinology. If you have any problemslet me know.Z11.3 Encounter for screening for infections with a predominantly sexual mode of sjtihbtcgenzS22.819 Testicular pain, unspecified Functional Status Description No Information Available Mental Status Description No Information Available Referrals Refer to Reason for Referral Status Appt Date Keith Nichole MD Created [address] [place] [id number] [phone] [facility] Sent 09/09/2018 [address] [facility] [address] [address] [facility] [address] [phone]
[2019-08-15 09:48] VITALS: BP 142/82
--- NOTE | 2019-08-15 09:55 | UC ---
UC General HPI - HPI Summary HPI Summary: 34-year-old male comes in with a chief complaint of a history of nausea vomiting diarrhea. Patient had 3 days of nausea vomiting diarrhea which ended 2 days ago on August 13, 2019. Yesterday and today he feels completely normal. No abdominal pain no nausea and vomiting no diarrhea. He has been eating normally. When he returned to work today work stated that he needed a returned to work without restrictions note for him to return to work. - History of Current Complaint Chief Complaint: UCGeneralIllness Stated Complaint: VOMITING Time Seen by Provider: 08/15/19 09:50 Pain Intensity: 0 - Allergy/Home Medications Allergies/Adverse Reactions: Allergies Allergy/AdvReac Type Severity Reaction Status Date / Time pet dander Allergy Difficulty Uncoded 08/15/19 09:48 Breathing PMH/Surg Hx/FS Hx/Imm Hx Previously Healthy: Yes - Surgical History Surgical History: Yes Surgery Procedure, Year, and Place: CHEST TUBE AN INFANT. VASECTOMY - Family History Known Family History: Positive: Diabetes, Other - ASTHMA - Social History Alcohol Use: Occasionally Substance Use Type: None Smoking Status (MU): Never Smoked Tobacco - Immunization History Most Recent Tetanus Shot: 2017 Review of Systems All Other Systems Reviewed And Are Negative: Yes Constitutional: Positive: Negative Skin: Positive: Negative Eyes: Positive: Negative ENT: Positive: Negative Respiratory: Positive: Negative Cardiovascular: Positive: Negative Gastrointestinal: Positive: Negative Genitourinary: Positive: Negative Motor: Positive: Negative Neurovascular: Positive: Negative Musculoskeletal: Positive: Negative Neurological: Positive: Negative Psychological: Positive: Negative Is Patient Immunocompromised?: No Physical Exam Triage Information Reviewed: Yes Appearance: Well-Appearing, No Pain Distress, Well-Nourished Vital Signs: Initial Vital Signs Temp 97.8 F 08/15/19 09:46 Pulse 110 08/15/19 09:46 Resp 20 08/15/19 09:46 BP 142/82 08/15/19 09:46 Pulse Ox 100 08/15/19 09:46 Vital Signs Reviewed: Yes Eye Exam: Normal Eyes: Positive: Conjunctiva Clear ENT: Positive: Pharynx normal Neck: Positive: Supple Respiratory: Positive: Lungs clear, Normal breath sounds, No respiratory distress Cardiovascular: Positive: RRR Abdomen Description: Positive: Nontender, Soft Musculoskeletal: Positive: Strength Intact, ROM Intact Neurological: Positive: Alert, Muscle Tone Normal Psychological: Positive: Age Appropriate Behavior Skin Exam: Normal Course/Dx - Course Course Of Treatment: Patient is well in clinic. Patient's heart rate was slightly elevated at 110 bpm at triage. I did not appreciate tachycardia during my exam. Patient reports that he is hungry. I wrote a note for return to work without restrictions for today August 15, 2019. Patient to get reevaluated if feeling ill or any other concerns. - Diagnoses Provider Diagnosis: Hx of nausea and vomiting Discharge ED - Sign-Out/Discharge Documenting (check all that apply): Patient Departure All imaging exams completed and their final reports reviewed: No Studies - Discharge Plan Condition: Stable Disposition: HOME Patient Education Materials: Acute Nausea and Vomiting (ED) Forms: *Work Release Referrals: Aby Leonardo MD [Primary Care Provider] - Additional Instructions: FOLLOW UP WITH YOUR DOCTOR IF NOT COMPLETELY IMPROVED. GET REEVALUATED SOONER IF NOT IMPROVED OR WORSE OR ANY QUESTIONS OR CONCERNS. - Billing Disposition and Condition Condition: STABLE Disposition: Home
== END 2019-08-15 10:00 | disposition home or self-care (01) ==
LOC: UCEAST 09:38
DX: Z87.19 Personal history of other diseases of the digestive system (principal); Z91.09 Other allergy status, other than to drugs and biological substances
CPT/HCPCS: 99211; G0463

== ENCOUNTER 2019-10-10 10:37 | Day surgery (SDC) | payer OTHER ==
[~2019-10-10 10:37] MED LIST: Buffered Lidocaine 1% SYRIN* 1 ML/SYRINGE INTRADERM ONE; Dexamethasone IV* 4 MG/ML 1 ML (4 MG) IV SLOW PU ONE; Famotidine IV* 10 MG/ML 2 ML (20 mg) IV ONE; Lactated Ringers 1000 ML Bag* 1,000 ML IV SCH
[2019-10-10] MEDS ORDERED: Dexamethasone IV* 4 MG/ML 1 ML (4 MG) ONE (11:30)
[2019-10-10] MEDS ORDERED: Buffered Lidocaine 1% SYRIN* 1 ML/SYRINGE INTRADERM ONE (11:31)
[2019-10-10] MEDS ORDERED: Famotidine IV* 10 MG/ML 2 ML (20 mg) ONE (11:31)
[2019-10-10] MEDS ORDERED: Propofol* 10 MG/ML 20 ML BTL ONE (12:34)
[2019-10-10] MEDS ORDERED: Rocuronium* 10 MG/ML VIAL ONE (12:34)
[2019-10-10] MEDS ORDERED: Ondansetron INJ* 2 MG/ML VIAL ONE (12:34)
[2019-10-10] MEDS ORDERED: Lidocaine 1% INJ* 10 MG/ML 30 ML SDV ONE (12:45)
[2019-10-10] MEDS ORDERED: Bupivacaine 0.25% SDV* 30 ML ONE (12:45)
[2019-10-10] MEDS ORDERED: Metoprolol Tartrate IV* 1 MG/ML 5 ML VIAL ONE (15:17)
[2019-10-10] MEDS ORDERED: Glycopyrrolate IV* 0.2 MG/ML 1 ML VIAL ONE (15:29)
[2019-10-10] MEDS ORDERED: Neostigmine Methylsulfate* 3 MG/3 ML SYRINGE ONE (15:29)
[2019-10-10] MEDS ORDERED: Lidocaine 2% PF * 5 ML VIAL ONE (15:32)
[2019-10-10] MEDS ORDERED: oxyCODONE/Acetamin 5/325 MG* TAB PO PRN (15:43)
[2019-10-10] MEDS ORDERED: Albuterol 2.5 MG/3 ML NEB.SOL* (0.083%) INH PRN (15:44)
[2019-10-10] MEDS ORDERED: ACETAMINOPHEN 1000 MG PO PRN (15:44)
[2019-10-10] MEDS ORDERED: ASA-APAP-CAFFEINE ES (NF) 1 TAB TAB PO PRN (15:44)
[2019-10-10] MEDS ORDERED: Albuterol HFA INHALER* 8 gm MDI INH PRN (15:44)
[2019-10-10] MEDS ORDERED: DiMENhydriNATE IV* 50 MG/ML VIAL IV PUSH PRN (16:02)
[2019-10-10] MEDS ORDERED: Naloxone* 0.4 MG/ML 1 ML VIAL IV PRN (16:02)
[2019-10-10] MEDS ORDERED: fentaNYL* 50 MCG/ML 2 ML VIAL (100 MCG VIAL) ONE (16:55)
[2019-10-10] MEDS: fentaNYL* 50 MCG/ML 2 ML VIAL (100 MCG VIAL) IV PRN ×2 (16:57→17:11)
[2019-10-10] MEDS ORDERED: DiMENhydriNATE IV* 50 MG/ML VIAL ONE (20:11)
[2019-10-10] MEDS ORDERED: Budesonide/Formote 160/4.5(NF) MDI INH SCH (21:00)
[2019-10-10 21:25] VITALS: BP 146/71
--- NOTE | 2019-10-10 22:44 | OP ---
CC: Dr. El Hess * DATE OF OPERATION: 10/10/19 - SDS DATE OF : 87 SERVICE: General Surgery. ATTENDING SURGEON: Shi Gallegos MD SUPERVISOR CRACK OFF: Rowan Figueroa NP ANESTHESIOLOGISTS: Dr. Bautista and Dr. Russo. ANESTHESIA: General endotracheal anesthesia. PRE-OP DIAGNOSIS: Graves' disease. POST-OP DIAGNOSIS: Graves' disease. OPERATIVE PROCEDURE: Total thyroidectomy. SPECIMEN: Right and left thyroid lobes. ESTIMATED BLOOD LOSS: Minimal, less than 10 cc. INDICATIONS FOR SURGERY: Mr. Garcia is a very pleasant 34-year-old gentleman with a history of Graves' disease that has been refractory to medical management. Given his increasing and worsening symptoms, he was determined to be an appropriate candidate for total thyroidectomy. He understood that the risks of surgery included, but were not limited to bleeding, infection, injury to nearby structures, and permanent hypoparathyroidism. He understood the alternatives and benefits as well and he wished to proceed. DESCRIPTION OF PROCEDURE: The patient was brought back to the operating room and placed on the operating table in the supine position. Sequential compression devices were placed in the bilateral lower extremities for DVT prophylaxis. No antibiotics were administered. General endotracheal anesthesia was induced. The electrodes for the nerve monitor were attached. A time-out was performed prior to administering local anesthesia to the neck, which consisted of 0.25% Marcaine and 1% lidocaine mixed. Next, the neck was prepped and draped in normal sterile fashion, and then a time - out was performed prior to beginning the surgery, which verified his name, date of , and the procedure to be performed. Next, an approximately 5 cm incision was made in the natural crease line 2 fingerbreadths above the sternal notch. The skin was divided down to the subcutaneous tissue. The platysma was divided, and then inferior and superior subplatysmal flaps were developed. The medial raphe between the strap muscles were identified and divided and then the strap muscles were retracted laterally off of the isthmus of the thyroid. The patient had an extremely large thyroid gland from his severe hyperthyroidism. With some difficulty, the isthmus was divided, flushed with the left thyroid lobe. The attachments of the right thyroid lobe to the trachea were divided using LigaSure. The space of Diamond was developed and the strap muscles were retracted laterally off of the very enlarged right thyroid lobe. The middle thyroid vein was identified and divided , and the superior pole vessels were then divided using combination of 2-0 silk sutures and LigaSure. Next, the thyroid lobe and isthmus were able to be rotated anteriorly and medially out of the neck. The recurrent laryngeal nerve was identified both visually and with the nerve monitor. The right lower parathyroid was also identified and preserved on the pedicle. The right upper parathyroid was identified, however, could not be preserved on the pedicle. Therefore, it was removed and saved later for autotransplantation. After the recurrent laryngeal nerve was identified and traced to the point where it inserted into the inferior constrictor muscles, the right thyroid lobe was able to be taken off the trachea using LigaSure. It was marked at the upper pole and carried off the table as specimen. Next, attention was turned towards the left thyroid lobe. In a similar fashion , the medial attachments were divided using LigaSure. This space of Diamond was developed and the strap muscles were retracted laterally off of the left thyroid gland, and the middle thyroid vein was identified and divided. The superior pole vessels were then divided using a combination of 2-0 silk sutures and LigaSure, and then the left thyroid lobe was able to be rotated medially and anteriorly out of the neck. The left upper parathyroid gland was identified and preserved on its pedicle. The left lower parathyroid gland was not definitively identified. The recurrent laryngeal nerve was identified both visually and with nerve monitor. Its course was traced out until it inserted into the inferior constrictor muscles, and then the thyroid lobe was able to be taken off the trachea using LigaSure with the care to avoid injury to the recurrent laryngeal nerve. It was examined very carefully in the back table and no parathyroid glands were identified. Therefore, superior pole was marked and was carried off the table as a specimen. Next, attention was turned towards obtaining hemostasis in the neck. Once hemostasis was obtained in both the right and left lateral necks, the Tisseel was placed on the lateral necks and then the strap muscles were reapproximated using interrupted 4-0 Vicryl sutures. A small pocket was made in the sternocleidomastoid muscle and then the right upper parathyroid gland that had been preserved was macerated slightly and then inserted into this muscular pocket, and a 4-0 Vicryl was used to close this pocket. After this, the platysma was reapproximated using interrupted 4-0 Vicryl sutures. The skin was closed using a running 5-0 Prolene suture. Sterile dressing was then placed. The patient's anesthesia was reversed, and he was taken to the PACU in stable condition. At the end of the case, all counts were correct and I was present during the entirety of the case. [id number] #: [id number] MTDD
== END 2019-10-10 21:27 | disposition home or self-care (01) ==
LOC: OR 10:37
PROVIDERS: ATTEND Surgery
DX: E05.00 Thyrotoxicosis with diffuse goiter without thyrotoxic crisis or storm (principal); J45.909 Unspecified asthma, uncomplicated
CPT/HCPCS: 88307; C1776; J1100; J1240; J2405; J2704; J2710; J3010; J3490